=== PATIENT | female | born 2000 | race Two or more races ===

== ENCOUNTER 2019-09-08 15:36 | Emergency (ER) | payer MEDICAID ==
[~2019-09-08] VITALS: Ht 160 cm; Wt 45.4 kg
[2019-09-08 15:58] VITALS: BP 142/80
[2019-09-08 16:18] LABS: Eosinophils # (auto) 0.1 uL; Eosinophils % (auto) 0.8 % (0.0-7.0); Hemoglobin 11.1 g/dL (12.2-16.2); Monocytes # (auto) 0.8 uL; Nucleated Red Blood Cells % 0.1 %
[2019-09-08 16:20] LABS: Basophils # (auto) 0 uL; Basophils % (auto) 0.6 % (0.0-2.0); Hematocrit 34.3 % (36.0-46.0); Lymphocytes % (auto) 13.6 % (10.0-50.0); Mean Corpuscular Hgb Conc. 32.3 g/dL (32.0-36.0); Mean Corpuscular Volume 74.4 fL (80.0-100.0); Monocytes % (auto) 10.4 % (0.0-12.0); Neutrophils # (auto) 5.7 uL; Neutrophils % (auto) 74.6 % (37.0-80.0); Platelet Count (auto) 297 10^3/uL (140-450); Red Blood Cells 4.62 10^6/uL (4.0-5.20); Red Cell Distribution Width 16.5 % (11.8-14.3); White Blood Cell 7.6 10^3/uL (4.4-10.8)
[2019-09-08 16:35] LABS: Albumin 2.5 g/dL (3.4-5.0); Anion Gap 7 (5-15); Blood Urea Nitrogen 7 mg/dL (7-18); Calcium 8.4 mg/dL (8.5-10.1); Carbon Dioxide 23 mmol/L (21-32); Chloride 108 mmol/L (98-107); Glucose 82 mg/dL (74-106); Potassium 3.5 mmol/L (3.5-5.1); Sodium 138 mmol/L (136-145)
[2019-09-08 16:43] LABS: Alanine Aminotransferase 15 U/L (13-56); Alkaline Phosphatase 89 U/L (45-117); Aspartate Aminotransferase 14 U/L (15-37); BUN/Creatinine Ratio 14.6; Bilirubin, Total 0.7 mg/dL (0.2-1.0); GFR African American 212 mL/min; GFR Non-African American 175 mL/min; Total Protein 7.1 g/dL (6.4-8.2)
== END 2019-09-08 21:17 | disposition left against medical advice (07) ==
LOC: EDBD 15:36 → ER 15:36
DX: O26.891 Other specified pregnancy related conditions, first trimester (principal); O99.341 Other mental disorders complicating pregnancy, first trimester; R07.89 Other chest pain; F41.9 Anxiety disorder, unspecified; Z3A.01 Less than 8 weeks gestation of pregnancy
CPT/HCPCS: 36415; 80053; 84484; 84702; 85025; 93005